=== PATIENT | female | born 1990 | race Caucasian/White ===

== ENCOUNTER → 2018-02-10 | Outpatient (CLI) | payer OTHER ==
[~2018-02-10] MED LIST: METHYLPREDNISOLONE ACETATE INJ 80 MG/1 ML VIAL ONE
--- NOTE | 2018-02-10 16:27 | RADIOLOGY REPORT (SQ) ---
EXAM DESCRIPTION: INJECT/ASPIR HIP/SHLDR/KNEE; FLUORO/NEEDLE PLACEMENT COMPLETED DATE/TIME: 02/10/2018 4:27 pm REASON FOR STUDY: LEFT HIP STRAIN PAIN M25.552 M25.552 PAIN IN LEFT HIP COMPARISON: None. FLUOROSCOPY TIME: 30 seconds of fluoroscopy was used. 3 images saved to PACS. LIMITATIONS: None. PROCEDURE: SITE OF INJECTION: Left ileo psoas tendon sheath LOCALIZING CONTRAST TYPE AND DOSE: 2 mm MEDICATION TYPE AND DOSE: 80 mg Depo-Medrol and 7 mL Sensorcaine Using local anesthesia and sterile technique with fluoroscopic guidance, the needle was advanced into the left iliopsoas tendon sheath bursa. Iodinated contrast was injected to verify intraarticular aaron cement. This was followed by therapeutic injection of the indicated medications. The needle was rem steven. There were no immediate complications. Preprocedure pain level: 5/10. Postprocedure pain level: 6/10. IMPRESSION: THERAPEUTIC INJECTION OF THE LEFT ILEUS PSOAS TENDON SHEATH ABOVE. COMMENT: Patient medication list reviewed: Yes- Quality ID# [id number]:Eligible professional attests to doc umenting in the medical record they obtained, updated, or reviewed the patient's current medications. . Quality ID 145: Final reports for procedures using fluoroscopy that document radiation exposure sharad almita, or exposure time and number of fluorographic images (if radiation exposure indices are not avail able) TECHNICAL DOCUMENTATION: JOB ID: [id number] [employer]- All Rights Reserved Reading location - IP/workstation name: [email or web address] [id number]
--- NOTE | 2018-02-10 16:27 | RADIOLOGY REPORT (SQ) ---
EXAM DESCRIPTION: INJECT/ASPIR HIP/SHLDR/KNEE; FLUORO/NEEDLE PLACEMENT COMPLETED DATE/TIME: 02/10/2018 4:27 pm REASON FOR STUDY: LEFT HIP STRAIN PAIN M25.552 M25.552 PAIN IN LEFT HIP COMPARISON: None. FLUOROSCOPY TIME: 30 seconds of fluoroscopy was used. 3 images saved to PACS. LIMITATIONS: None. PROCEDURE: SITE OF INJECTION: Left ileo psoas tendon sheath LOCALIZING CONTRAST TYPE AND DOSE: 2 mm MEDICATION TYPE AND DOSE: 80 mg Depo-Medrol and 7 mL Sensorcaine Using local anesthesia and sterile technique with fluoroscopic guidance, the needle was advanced into the left iliopsoas tendon sheath bursa. Iodinated contrast was injected to verify intraarticular aaron cement. This was followed by therapeutic injection of the indicated medications. The needle was rem steven. There were no immediate complications. Preprocedure pain level: 5/10. Postprocedure pain level: 6/10. IMPRESSION: THERAPEUTIC INJECTION OF THE LEFT ILEUS PSOAS TENDON SHEATH ABOVE. COMMENT: Patient medication list reviewed: Yes- Quality ID# [id number]:Eligible professional attests to doc umenting in the medical record they obtained, updated, or reviewed the patient's current medications. . Quality ID 145: Final reports for procedures using fluoroscopy that document radiation exposure sharad almita, or exposure time and number of fluorographic images (if radiation exposure indices are not avail able) TECHNICAL DOCUMENTATION: JOB ID: [id number] 1986 [employer]- All Rights Reserved Reading location - IP/workstation name: [email or web address] [id number]
== END ==
LOC: EDSTATUS 13:00 → RAD 15:19
PROVIDERS: ATTEND Orthopaedic Surgery Sports Medicine
DX: M25.552 Pain in left hip (principal)
CPT/HCPCS: 20610; 77002; J1040